=== PATIENT | male | born 1985 | race Caucasian/White ===

== ENCOUNTER 2020-07-27 09:50 | Emergency (ER) | payer MEDICAID ==
[2020-07-27] MEDS ORDERED: Acetaminophen 325 MG Tab PO ONE (10:33)
--- NOTE | 2020-07-27 10:51 | EDM.PDOC ---
ED HPI GENERAL MEDICAL PROBLEM - General Chief Complaint: General Stated Complaint: general Time Seen by Provider: 07/27/20 10:27 - History of Present Illness INITIAL COMMENTS - FREE TEXT/NARRATIVE: 0830 patient at work c/o body aches, left flank pain, dizziness, nausea. Denies diabetes, cough, fever, CP, REYES, diarrhea, or vomiting. Low grade fever on arrival with negative COVID test. Dizziness is described as "my eyes are tr acking funny" Onset: Today Onset Time: 08:30 Severity: Mild Improves with: Reports: None Worsens with: Reports: None Associated Symptoms: Reports: Shortness of Breath, Weakness. Denies: Chest Pain, Cough, Headaches - Related Data Allergies Allergy/AdvReac Type Severity Reaction Status Date / Time No Known Allergies Allergy Verified 07/27/20 10:57 Home Meds: Home Meds Escitalopram Oxalate 10 mg PO DAILY 07/27/20 [History] buPROPion HCL [Bupropion HCl Sr] 150 mg PO DAILY 07/27/20 [History] hydroCHLOROthiazide [Hydrochlorothiazide] 25 mg PO DAILY 07/27/20 [History] traZODone HCl [Trazodone HCl] 50 mg PO ASDIRECTED 07/27/20 [History] Past Medical History Musculoskeletal History: Reports: Fracture, Other (See Below) Other Musculoskeletal History: right elbow fracture at age 8. Plantar fasciitis ED ROS GENERAL - Review of Systems Review Of Systems: See Below Constitutional: Reports: No Symptoms HEENT: Reports: No Symptoms Respiratory: Reports: Shortness of Breath. Denies: Cough Cardiovascular: Reports: No Symptoms, Edema Endocrine: Reports: No Symptoms GI/Abdominal: Reports: Nausea : Reports: No Symptoms Musculoskeletal: Reports: No Symptoms Skin: Reports: No Symptoms Neurological: Reports: Weakness. Denies: Headache, Numbness, Paresthesia Psychiatric: Reports: Anxiety Hematologic/Lymphatic: Reports: No Symptoms Immunologic: Reports: No Symptoms ED EXAM, GENERAL - Physical Exam Exam: See Below Exam Limited By: No Limitations General Appearance: Alert, No Apparent Distress Eye Exam: Bilateral Eye: Normal Inspection Ears: Normal External Exam, Normal Canal, Normal TMs Ear Exam: Bilateral Ear: Canal Normal, TM normal Nose: Normal Inspection, Normal Mucosa, No Blood Throat/Mouth: Normal Inspection, Normal Lips, Normal Teeth, Normal Gums, Normal Oropharynx, Normal Voice, No Airway Compromise Head: Atraumatic Neck: Normal Inspection, Full Range of Motion Respiratory/Chest: No Respiratory Distress, Lungs Clear, Normal Breath Sounds Cardiovascular: Normal Peripheral Pulses, No Edema, No JVD, No Murmur, Tachycardia Peripheral Pulses: 3+: Radial (L), Radial (R), Posterior Tibial (L), Posterior Tibial (R) GI/Abdominal: Normal Bowel Sounds, Soft, Non-Tender, No Organomegaly Back Exam: Normal Inspection, Full Range of Motion, CVA Tenderness (L) (with deep palpation, 3/10 ache along with body aches, no REYES). No: Decreased Range of Motion, Paraspinal Tenderness, Vertebral Tenderness Extremities: Normal Inspection, Normal Range of Motion, No Pedal Edema, Normal Capillary Refill Neurological: Alert, Oriented, CN II-XII Intact, Normal Cognition, Normal Gait, No Motor/Sensory Deficits Psychiatric: Normal Affect, Normal Mood, Anxious Skin Exam: Warm, Dry, Intact Lymphatic: No Adenopathy Course - Vital Signs Last Recorded V/S: Last Vital Signs Temp 99.3 F 07/27/20 10:29 Pulse 97 07/27/20 10:29 Resp 20 07/27/20 10:29 BP 154/93 H 07/27/20 10:29 Pulse Ox 96 07/27/20 10:29 - Orders/Labs/Meds Orders: Active Orders 24 hr Category Date Time Status Chest 1V Frontal [CR] Stat Exams 07/27/20 10:32 Ordered CBC WITH AUTO DIFF [HEME] Stat Lab 07/27/20 10:33 Ordered COMPREHENSIVE METABOLIC PN,CMP [CHEM] Stat Lab 07/27/20 10:33 Ordered INFLUENZA A+B AG SCREEN [RM] Stat Lab 07/27/20 10:34 Ordered UA RFX GEORGE AND CULT IF INDIC [URIN] Stat Lab 07/27/20 10:33 Ordered Isolation [COMM] Routine Oth 07/27/20 10:34 Ordered Labs: Laboratory Tests 07/27/20 Range/Units 10:04 SARS CoV-2 RNA Rapid RIAN Negative Meds: Medications Discontinued Medications Generic Name Dose Route Start Last Admin Trade Name Freq PRN Reason Stop Dose Admin Acetaminophen 650 mg 07/27/20 10:33 Tylenol PO 07/27/20 10:34 NOW ONE Departure - Departure Time of Disposition: 12:00 Disposition: Home, Self-Care 01 Condition: Good Clinical Impression: Viral illness - Discharge Information *PRESCRIPTION DRUG MONITORING PROGRAM REVIEWED*: Not Applicable *COPY OF PRESCRIPTION DRUG MONITORING REPORT IN PATIENT LYSSA: Not Applicable Instructions: Viral Illness, Adult Forms: ED Department Discharge Additional Instructions: Drink plenty of water. Tyelnol and/or ibuprofen for fever and bodyaches. Rest. Return to ED for any increased or new concerning symptoms. Follow up with your primary doctor next week as needed. Sepsis Event Note (ED) - Evaluation Sepsis Screening Result: No Definite Risk - Focused Exam Vital Signs: Vital Signs Temp Temp Pulse Resp BP Pulse Ox 07/27/20 10:29 99.3 F 99.3 F 97 20 154/93 H 96 - My Orders Last 24 Hours: My Active Orders 07/27/20 10:32 Chest 1V Frontal [CR] Stat 07/27/20 10:33 CBC WITH AUTO DIFF [HEME] Stat COMPREHENSIVE METABOLIC PN,CMP [CHEM] Stat UA RFX GEORGE AND CULT IF INDIC [URIN] Stat 07/27/20 10:34 INFLUENZA A+B AG SCREEN [RM] Stat Isolation [COMM] Routine - Assessment/Plan Last 24 Hours: My Active Orders 07/27/20 10:32 Chest 1V Frontal [CR] Stat 07/27/20 10:33 CBC WITH AUTO DIFF [HEME] Stat COMPREHENSIVE METABOLIC PN,CMP [CHEM] Stat UA RFX GEORGE AND CULT IF INDIC [URIN] Stat 07/27/20 10:34 INFLUENZA A+B AG SCREEN [RM] Stat Isolation [COMM] Routine
[2020-07-27] MEDS ORDERED: Acetaminophen 325 MG Tab ONE (11:23)
[2020-07-27] MEDS ORDERED: Ibuprofen 600 MG Tab PO ONE (11:31)
[2020-07-27] MEDS ORDERED: Sodium Chloride 0.9% 500 ML IV ONE (11:31)
[2020-07-27] MEDS ORDERED: Ibuprofen 600 MG Tab ONE (11:43)
--- NOTE | 2020-07-27 12:05 | CR ---
DATE OF SERVICE: 07/27/2020 CLINICAL DATA: sob AP chest: No priors. The patient has taken a poor inspiration and is in an apical lordotic position. The heart size is normal. The lungs are clear. No pneumothorax. No pleural effusions. No evidence of acute intrathoracic disease. MTDD
== END 2020-07-27 12:15 | disposition home or self-care (01) ==
LOC: LB.ED 09:50
DX: B34.9 Viral infection, unspecified (principal); Z20.828 Contact with and (suspected) exposure to other viral communicable diseases; Z79.899 Other long term (current) drug therapy
CPT/HCPCS: 36415; 71045; 80053; 81003; 85025; 87430; 87635; 87804; 93005; 99285; A9270; J7040; 99282; U0002